=== PATIENT | male | born 1995 | race Two or more races ===

== ENCOUNTER 2024-11-08 16:33 | Emergency (ER) | payer BC ==
[~2024-11-08] VITALS: Ht 170.2 cm; Wt 84.4 kg
[2024-11-08 17:33] VITALS: TEMP 98.2
[2024-11-08] MEDS ORDERED: DICYCLOMINE HCL 10 MG CAPSULE PO ONE (19:56)
[2024-11-08] MEDS ORDERED: FAMOTIDINE (20 MG) 20 MG TABLET ONE (19:56)
[2024-11-08] MEDS ORDERED: PANTOPRAZOLE 40 MG TABLET.DR PO ONE (19:56)
[2024-11-08] MEDS: PANTOPRAZOLE 40 MG TABLET.DR PO ONE (20:00)
[2024-11-08] MEDS: FAMOTIDINE (20 MG) 20 MG TABLET PO ONE (20:00)
[2024-11-08] MEDS: DICYCLOMINE HCL 10 MG CAPSULE PO ONE (20:00)
[2024-11-08 20:29] LABS: PLATELET COUNT (AUTO) 172 K/uL (150-450); RED BLOOD CELL COUNT(AUTO) 5.18 MIL/uL (4.5-6.0); RED CELL DISTRIBUTION WIDTH 13.1 % (11.5-15.0); WHITE BLOOD COUNT (AUTO) 5.5 K/uL (4.3-11.0)
[2024-11-08 20:40] LABS: CALCIUM, SERUM 8.9 mg/dL (8.5-10.1); CREATININE 0.7 mg/dL (0.6-1.3); SODIUM SERUM 136.0 mmol/L (136-145); UREA NITROGEN, BLOOD 18.0 mg/dL (7-18)
[2024-11-08 20:44] LABS: ASPARTATE AMINOTRANSFERASE 131.0 U/L (15-37); TOTAL PROTEIN, SERUM 8.0 g/dL (6.4-8.2)
[2024-11-08] MEDS ORDERED: DOCU100C36 PO (21:02)
[2024-11-08] MEDS ORDERED: POLY17PO4 PO (21:02)
[2024-11-08] MEDS ORDERED: MINE1OIL PO (21:02)
[2024-11-08 21:17] VITALS: BP 125/80; O2SAT 100
[2024-11-08] MEDS ORDERED: DICY10CA37 PO (21:18)
== END 2024-11-08 21:18 | disposition home or self-care (01) ==
LOC: ER 16:47
DX: K59.00 Constipation, unspecified (principal); K58.9 Irritable bowel syndrome, unspecified
CPT/HCPCS: 36415; 80048-TC; 80076-TC; 83690-TC; 85025-TC